=== PATIENT | male | born 1975 | race Caucasian/White ===

== ENCOUNTER 2018-09-10 15:17 | Emergency (ER) | payer OTHER ==
[~2018-09-10] VITALS: Ht 170.2 cm; Wt 88.5 kg
[2018-09-10 15:35] VITALS: BP 126/75
[2018-09-10] MEDS ORDERED: NAPROXEN 500 MG TABLET PO STA (15:54)
[2018-09-10] MEDS ORDERED: HYDROcodone/APAP 5/325MG 1 TAB TABLET PO ONE (16:00)
--- NOTE | 2018-09-10 16:40 | RAD ---
EXAM: Left ankle, 3 views. HISTORY: Sports injury. COMPARISON: None. FINDINGS: 3 views of the left ankle are obtained. There is no fracture, dislocation or subluxation. There is a tiny ossicle or spur along the inferior medial malleolus. No osteochondral lesion is seen. IMPRESSION: No acute osseous finding. Electronically signed by: Andra Chowdhury MD (09/10/2018 4:36 PM) [facility]
[2018-09-10] MEDS ORDERED: METH4TAB2 PO (17:03)
[2018-09-10] MEDS ORDERED: HYDR-3164 PO (17:03)
[2018-09-10] MEDS ORDERED: DICL50TA4 PO (17:03)
--- NOTE | 2018-09-10 17:03 | PHYS DOC ---
Past Medical History Past Medical History: High Cholesterol, Hypertension Past Surgical History: Other Additional Past Surgical Histo: RIGHT ACL REPAIR Alcohol Use: Rarely Drug Use: None Adult General Chief Complaint Chief Complaint: ANKLE PROBLEM HPI HPI Patient is a 42 year old male with history of high cholesterol, hypertension, who presents today complaining of 6 out of 10 sharp posterior left ankle pain that began a couple minutes ago, patient states he was playing basketball at the local [facility] when he had a pop sound from the posterior ankle, he is concerned he could have Achilles tendon tear. He is able to flex and extend the foot/ankle with no difficulties. He states his pain is worse on weight bearing. He has not taken anything for his pain. Review of Systems Review of Systems Constitutional: Denies fever or chills [] Musculoskeletal: Left posterior ankle pain Integument: Denies rash or skin lesions [] Neurologic: Denies headache, focal weakness or sensory changes [] All other systems were reviewed and found to be within normal limits, except as documented in this note. Current Medications Current Medications Current Medications Medications (Trade) Dose Ordered Sig/Baltazar Start Time Stop Time Status Last Admin Dose Admin Acetaminophen/ Hydrocodone Bitart (Lortab 5/325) 2 tab 1X ONCE 09/10/18 16:00 09/10/18 16:01 DC 09/10/18 16:05 2 TAB Naproxen (Naprosyn) 500 mg 1X STAT 09/10/18 15:54 09/10/18 16:01 DC 09/10/18 16:05 500 MG Allergies Allergies Allergies Coded Allergies Type Severity Reaction Last Updated Verified cephalexin Allergy Intermediate RASH, ITCHING 09/10/18 Yes Physical Exam Physical Exam Constitutional: Well developed, well nourished, no acute distress, non-toxic appearance. [] Skin: Warm, dry, no erythema, no rash. [] Back: No tenderness, no CVA tenderness. [] Extremities: Left lower extremity with no obvious deformity. Tenderness on palpation along the Achilles tendon, patient able to flex and extend the left ankle/foot with no difficulties, negative Ward's sign. Full range of motion to the left lower extremity. Negative Homans sign. +2 left pedal pulse. Cap refill less than 2 seconds the left toes. Sensation intact to the left lower extremity. Neurologic: Alert and oriented X 3, normal motor function, normal sensory function, no focal deficits noted. [] Psychologic: Affect normal, judgement normal, mood normal. [] Current Patient Data Vital Signs Vital Signs Date Time Temp Pulse Resp B/P (MAP) Pulse Ox O2 Delivery O2 Flow Rate FiO2 09/10/18 16:05 18 100 Room Air 09/10/18 15:35 98.4 91 126/75 (92) 98.4 EKG EKG [] Radiology/Procedures Radiology/Procedures []PROCEDURE: ANKLE LEFT 3V EXAM: Left ankle, 3 views. HISTORY: Sports injury. COMPARISON: None. FINDINGS: 3 views of the left ankle are obtained. There is no fracture, dislocation or subluxation. There is a tiny ossicle or spur along the inferior medial malleolus. No osteochondral lesion is seen. IMPRESSION: No acute osseous finding. Electronically signed by: Andra Childers MD (09/10/2018 4:36 PM) [facility] DICTATED and SIGNED BY: ANDRA CHILDERS MD DATE: 09/10/18 7099 Course & Med Decision Making Course & Med Decision Making Pertinent Labs and Imaging studies reviewed. (See chart for details) This is a 42-year-old now presenting to the ED today with left ankle pain that began while playing basketball. He is concerned he could have Achilles tendon tear, he fortunately is able to flex and extend the left ankle/foot with no difficulties, he has a negative Ward's sign. Left ankle x-rays interpreted by radiologist are negative for any acute findings. Patient was placed in a posterior leg splint by the ED RN, neurovascular exam is intact. Ice elevation encouraged, soft and patient to contact his own PCP orthopedic doctor provided tomorrow and set up a follow-up appointment for MRI to rule out Achilles tendon tear if he is still concerned. Dragon Disclaimer Dragon Disclaimer This electronic medical record was generated, in whole or in part, using a voice recognition dictation system. Departure Departure Impression: Primary Impression: Left ankle sprain Disposition: 01 HOME, SELF-CARE Condition: STABLE Referrals: KAROLINA RICK MD (PCP) TOMAS LIMA II, MD Follow-up in the next seven days Patient Instructions: Ankle Sprain, [id number] Additional Instructions: You were seen in the emergency room for left ankle pain, your left ankle x-rays are negative for any acute findings. Please contact the provided orthopedic doctor or your own doctor tomorrow and set up a follow-up appointment for MRI as an outpatient to rule out Achilles tendon tear if he you are still concerned. Try to ice and elevate the extremity. Take the prescribed pain medicine as needed. Scripts Methylprednisolone (MEDROL) 4 Mg Tab.ds.pk 1 PKG PO UD, #1 PKG Prov: ADDI LOUISE APRN 09/10/18 Diclofenac Sodium (DICLOFENAC SODIUM) 50 Mg Tablet.dr 1 TAB PO BID, #20 TAB 0 Refills Prov: ADDI LOUISE APRN 09/10/18 Hydrocodone/Apap 5-325 (NORCO 5-325 TABLET) 1 Each Tablet 1 TAB PO Q6HRS, #12 TAB Prov: ADDI LOUISE APRN 09/10/18 Problem Qualifiers Primary Impression: Left ankle sprain Encounter type: initial encounter Involved ligament of ankle: unspecified ligament Qualified Codes: S93.402A - Sprain of unspecified ligament of left ankle, initial encounter ADDI LOUISE APRN Sep 10, 2018 17:03
== END 2018-09-10 17:20 | disposition home or self-care (01) ==
LOC: ER 15:17
DX: S93.402A Sprain of unspecified ligament of left ankle, initial encounter (principal); E78.00 Pure hypercholesterolemia, unspecified; I10 Essential (primary) hypertension; Z88.1 Allergy status to other antibiotic agents; X50.9XXA Other and unspecified overexertion or strenuous movements or postures, initial encounter; Y93.67 Activity, basketball; Y92.89 Other specified places as the place of occurrence of the external cause; Y99.8 Other external cause status
CPT/HCPCS: 29515; 73610; 99284-25

== ENCOUNTER 2020-03-28 19:22 | Emergency (ER) | payer OTHER ==
[~2020-03-28] VITALS: Ht 170.2 cm; Wt 88.6 kg
[~2020-03-28 19:22] MED LIST: DICL50TA4 PO; HYDR-3164 PO; METH4TAB2 PO
--- NOTE | 2020-03-28 20:28 | PHYS DOC ---
Past Medical History Past Medical History: High Cholesterol, Hypertension (HUSSEIN JOHNSON APRN) Past Surgical History: Other Additional Past Surgical Histo: RIGHT ACL REPAIR (HUSSEIN JOHNSON APRN) Smoking Status: Never Smoker Alcohol Use: Rarely Drug Use: None (HUSSEIN JOHNSON APRN) General Adult EDM: Chief Complaint: FINGER INJURY HPI: HPI: Patient is a 44 year old left fifth finger injury. Patient reports that he jammed his finger on a wooden board today. There is an obvious deformity to tip of left fifth finger. Patient rates pain 2 out of 10, he did not take any treatment at home, no radiation of pain, no alleviating or aggravating factors. (HUSSEIN JOHNSON APRN) Review of Systems: Review of Systems: Constitutional: Denies fever or chills. [] Musculoskeletal: See HPI Psychiatric: Denies depression or anxiety. [] (HUSSEIN JOHNSON APRN) Heart Score: Risk Factors: Risk Factors: DM, Current or recent (<one month) smoker, HTN, HLP, family history of CAD, obesity. Risk Scores: Score 0 - 3: 2.5% MACE over next 6 weeks - Discharge Home Score 4 - 6: 20.3% MACE over next 6 weeks - Admit for Clinical Observation Score 7 - 10: 72.7% MACE over next 6 weeks - Early Invasive Strategies (HUSSEIN JOHNSON APRN) Allergies: Allergies: Allergies Coded Allergies Type Severity Reaction Last Updated Verified cephalexin Allergy Intermediate RASH, ITCHING 09/10/18 Yes (HUSSEIN JOHNSON APRN) Physical Exam: PE: Constitutional: Well developed, well nourished, no acute distress, non-toxic appearance. [] HENT: Normocephalic, atraumatic, bilateral external ears normal, nose normal. [] Eyes: PERRLA, EOMI, conjunctiva normal, no discharge. [] Neck: Normal range of motion, no stridor. [] Cardiovascular:Heart rate regular rhythm Lungs & Thorax: Respirations even and unlabored, no retractions, no respiratory distress Skin: Warm, dry, no erythema, no rash. [] Extremities: Left fifth finger: Deformity and tenderness to DIP joint of left fifth finger, sensation intact, warm digit, pulses 2+, full flexion of affected digit but limited extension at the DIP Neurologic: Alert and oriented X 3, no focal deficits noted. [] Psychologic: Affect normal, judgement normal, mood normal. [] (HUSSEIN JOHNSON APRN) Current Patient Data: Vital Signs: Vital Signs Date Time Temp Pulse Resp B/P (MAP) Pulse Ox O2 Delivery O2 Flow Rate FiO2 03/28/20 19:56 98.4 83 16 138/63 (88) 99 Room Air 98.4 (HUSSEIN JOHNSON APRN) EKG: EKG: [] (HUSSEIN JOHNSON APRN) Radiology/Procedures: Radiology/Procedures: PROCEDURE: FINGER(S) LEFT 3 views left finger HISTORY: Pain and deformity AP view left hand was obtained as well as collimated AP and lateral views of the little finger There is flexion of the little finger at the distal interphalangeal joint is tiny bony density posterior to the joint. IMPRESSION: Possible tiny avulsion injury to the extensor mechanism of the little finger. Clinical correlation suggested.[] 2039- I was able to manipulate the fifth digit of the left hand back into place. The patient was able to extend his finger after this procedure. He was placed in an aluminum finger splint by myself and then adriana taped to the left 4th digit. (HUSSEIN JOHNSON APRN) Course & Med Decision Making: Course & Med Decision Making Pertinent Labs and Imaging studies reviewed. (See chart for details) [] (HUSSEIN JOHNSON APRN) Dragon Disclaimer: Dragon Disclaimer: This electronic medical record was generated, in whole or in part, using a voice recognition dictation system. (HUSSEIN JOHNSON GLUE REEL OPERATOR) Departure Departure Impression: Primary Impression: Avulsion fracture of distal phalanx of finger with routine healing Qualified Codes: S62.639D - Displaced fracture of distal phalanx of unspecified finger, subsequent encounter for fracture with routine healing Additional Impression: Dislocation of distal interphalangeal (DIP) joint of left ring finger Qualified Codes: S63.295A - Dislocation of distal interphalangeal joint of left ring finger, initial encounter Disposition: 01 HOME, SELF-CARE Condition: STABLE Referrals: KAROLINA RICK MD (PCP) RHYS FOLEY MD Patient Instructions: Avulsion Fracture, Finger Dislocation, [id number] Additional Instructions: You may take Tylenol or ibuprofen as needed for pain. Wear the aluminum finger splint and adriana tape your fingers together as done in the emergency department until follow-up. Follow-up with Dr. Foley or your primary care doctor for reevaluation. Return to the ER if symptoms worsen. Justicifation of Admission Dx: Justifications for Admission: Justification of Admission Dx: N/A (HUSSEIN JOHNSON APRN) Attending Signature Attending Signature I have reviewed the PA/BEDSPREAD FOLDER's note and plan of care. I was available for consultation as needed during the patient's visit in the emergency department. I agree with the clinical impression, plan, and disposition. (TRI BERKOWITZ DO) Attending Signature I have participated in the care of this patient and I have reviewed and agree with all pertinent clinical information above including history, exam, and recommendations. (HUSSEIN JOHNSON APRN) HUSSEIN JOHNSON APRN Mar 28, 2020 20:28 TRI BERKOWITZ DO Mar 28, 2020 21:07
--- NOTE | 2020-03-28 20:41 | RAD ---
3 views left finger HISTORY: Pain and deformity AP view left hand was obtained as well as collimated AP and lateral views of the little finger There is flexion of the little finger at the distal interphalangeal joint is tiny bony density posterior to the joint. IMPRESSION: Possible tiny avulsion injury to the extensor mechanism of the little finger. Clinical correlation suggested. Electronically signed by: Tyler Saldana III, MD (03/28/2020 8:39 PM) [facility]
[2020-03-28 21:12] VITALS: BP 128/56
== END 2020-03-28 21:12 | disposition home or self-care (01) ==
LOC: ER 19:22
DX: S62.637A Displaced fracture of distal phalanx of left little finger, initial encounter for closed fracture (principal); S63.295A Dislocation of distal interphalangeal joint of left ring finger, initial encounter; R20.0 Anesthesia of skin; E78.00 Pure hypercholesterolemia, unspecified; I10 Essential (primary) hypertension; Z98.890 Other specified postprocedural states; Z88.1 Allergy status to other antibiotic agents; W23.0XXA Caught, crushed, jammed, or pinched between moving objects, initial encounter; Y93.89 Activity, other specified; Y92.89 Other specified places as the place of occurrence of the external cause; Y99.8 Other external cause status
CPT/HCPCS: 29130; 73140; 99283